=== PATIENT | male | born 1995 | race American Indian/Alaskan Native ===

== ENCOUNTER 2022-03-09 09:23 | Observation (INO) | payer OTHER ==
[~2022-03-09 09:23] MED LIST: ceFAZolin/Water 2 GM/20 ML 2 GM/20 ML SYRINGE IV NR
[2022-03-09] MEDS ORDERED: LACTATED RINGERS 1,000 ML ONE ×2 (09:45→13:13)
[2022-03-09] MEDS ORDERED: LIDOCAINE PF 100 MG/5 ML (CARDIAC SYRINGE) IV ONE (10:29)
[2022-03-09] MEDS ORDERED: fentaNYL 100 MCG/2 ML INJ ONE (10:29)
[2022-03-09] MEDS ORDERED: propofoL 200 MG/20 ML VIAL IV ONE (10:29)
--- NOTE | 2022-03-09 10:33 | Anesthesia Consultation ---
Anesthesia Consult and Med Hx Date of service: 03/09/22 - Airway Anesthetic Teeth Evaluation: Good Mental/Hyoid Distance: Adequate Mallampati Class: Class II Intubation Access Assessment: Good - Pulmonary Exam CTA: Yes - Cardiac Exam Cardiac Exam: No Murmur - Pre-Operative Health Status ASA Pre-Surgery Classification: ASA2 Proposed Anesthetic Plan: General - Pulmonary Hx Sleep Apnea: Yes (Does not use CPAP) - Central Nervous System Hx Psychiatric Problems: No - Other Systems Hx Cancer: No
--- NOTE | 2022-03-09 10:33 | Anesthesia Day of Surgery ---
Anesthesia Day of Surgery - Day of Surgery Patient Examined: Yes Patient H&P Reviewed: Yes Patient is NPO: Yes
[2022-03-09] MEDS ORDERED: SUCCINYLCHOLINE CHLORIDE 200 MG/10 ML INJ MDV ONE (10:35)
[2022-03-09] MEDS ORDERED: dexAMETHasone 20 MG/5 ML VIAL ONE (10:35)
[2022-03-09] MEDS ORDERED: ONDANSETRON 4 MG/2 ML INJ ONE (10:35)
[2022-03-09] MEDS ORDERED: HYDROmorphone 0.5 MG/0.5 ML INJ IV PRN (10:39)
[2022-03-09] MEDS ORDERED: LACTATED RINGERS 1,000 ML IV SCH (10:45)
[2022-03-09] MEDS ORDERED: dexAMETHasone 4 MG/ML VIAL ONE (10:58)
[2022-03-09] MEDS ORDERED: LIDOCAINE (1%) 10 MG/1 ML VIAL 20 ML MDV ONE (10:59)
[2022-03-09] MEDS ORDERED: BUPIVACAINE-EPINEPHRINE/PF 0.5%-1:200,000 (30 ML) VIAL INFILTRATI ONE (10:59)
[2022-03-09] MEDS ORDERED: CELECOXIB 200 MG CAP PO SCH (11:00)
[2022-03-09] MEDS ORDERED: MIDAZOLAM 2 MG/2 ML INJ IV NR (11:00)
[2022-03-09] MEDS ORDERED: ceFAZolin/NS 1 GM/50 ML 1 GM/50 ML BAG IV SCH ×2 (11:00→16:00)
[2022-03-09] MEDS ORDERED: GABAPENTIN 300 MG CAP PO SCH (11:00)
[2022-03-09] MEDS ORDERED: HYDROmorphone 1 MG/1 ML INJ ONE (11:51)
[2022-03-09] MEDS ORDERED: ONDANSETRON 4 MG/2 ML INJ IV PRN (12:00)
[2022-03-09] MEDS ORDERED: HYDROcodone/ACETAMINOPHEN 5-325 MG TAB PO PRN (12:00)
[2022-03-09] MEDS ORDERED: MORPHINE 4 MG/1 ML INJ IV PRN (12:00)
[2022-03-09] MEDS ORDERED: ACETAMINOPHEN 325 MG TAB PO PRN (12:00)
[2022-03-09] MEDS ORDERED: SODIUM CHLORIDE 0.9% IRR 1,500 ML BOTTLE IR ONE (12:29)
--- NOTE | 2022-03-09 15:14 | XRay Report ---
INTRAOPERATIVE FLUOROSCOPY: LEFT KNEE INDICATION / CLINICAL INFORMATION: UNILATERAL PRIMARY OSTEOARTHRITIS. TECHNIQUE: Intraoperative spot images were obtained during the procedure. FINDINGS / IMPRESSION: Plate and screw fixation hardware overlies the distal femur. Postsurgical changes from femoral osteot daxa. No immediate complication. Fluoroscopy Time: 1.7 minutes. Fluoroscopy Images: 1. Signer Name: Cuco Armenta MD Signed: 03/09/2022 3:10 PM Workstation Name: [id number]
--- NOTE | 2022-03-09 15:39 | Operative Report ---
DATE OF SURGERY: 03/09/2022 PREOPERATIVE DIAGNOSIS: Left knee arthritis. POSTOPERATIVE DIAGNOSIS: Left knee arthritis. PROCEDURE PERFORMED: Left knee distal femoral osteotomy. SURGEON: Jeremy Baptiste II, MD. METAL PLATER: None. ANESTHESIA: LMA and femoral nerve block. COMPLICATIONS: None. DRAINS: None. TOURNIQUET TIME: 144 minutes. INDICATIONS: The patient is a 26-year-old male who is having refractory pain in his left knee consistent with a subtotal lateral meniscectomy and degenerative changes in the lateral femoral condyle. Recommended the patient to undergo surgical management in the form of a distal femoral osteotomy. Risks, benefits and limitations of surgery were discussed with the patient including bleeding, infection, injury to nerves, blood vessel and need for operation. The patient understands these risks and consented to undergo surgery. TECHNIQUE: In preoperative holding area, site was marked with a surgical marker pen. Extremity was prepped and draped in a sterile fashion in a supine position with a bump under the ipsilateral side. Tourniquet was elevated to 300 mmHg. A lateral incision measuring about 10 cm in length was made. Dissection was carried down through the underlying soft tissue to the level of the IT band, which was split in line with its fibers. The vastus lateralis was then reflected anteriorly, taking care to ligate crossing vessels. The lateral femur was identified using a C-arm visualization. A plate was placed onto the lateral femur and a guide pin was placed obliquely beginning just proximal to the metaphysis on the lateral side extending medially towards the medial epicondyle. A guide pin was inserted and then used as a cutting guide for oscillating saw. The lateral, anterior and posterior cortex were cut and then a number of osteotomes were used to create an opening wedge on the lateral femur. An opening wedge of about 9 mm was performed. Lamina spreaders were inserted in order to hold the osteotomy in position. Next, a left small medium contoured and locked femoral osteotomy plate was applied to the knee. Distal screws were locked into place with multiple 6.5 cancellous screws. The alignment was then visualized using an alignment vinay centered at the femur as well as at the ankle, which did correct the lateral weightbearing of the knee alignment. The definitive fixation was placed proximally and then allograft bone chips and AlloSync Pure from [employer] was inserted to increase the likelihood of bony healing. The wound was irrigated prior to placement of bone graft. The IT band was closed with 0 Vicryl, subcutaneous tissue closed with 2-0 Vicryl and skin closed with justin. There was good hemostasis, therefore, no need to place a Hemovac drain. The tourniquet was deflated. The patient was awakened and taken to recovery room in a stable condition. POSTOPERATIVE PLAN: The patient will be nonweightbearing for 6 weeks. He will work with a CPM, working on range of motion exercises. We will see him back for a followup visit 2 weeks postop for suture removal. TID: [id number] RECEIPT: [id number] ASI/ARV
--- NOTE | 2022-03-09 16:35 | Post Anesthesia Evaluation ---
- Post Anesthesia Evaluation Patient Participated: Yes Airway Patent: Yes Stable Respiratory Function: Yes Nausea/Vomiting: No Temp > 96.8F: Yes Pain Manageable: Yes Adequeate Hydration: Yes Anesthesia Complications: No
[2022-03-09 18:19] VITALS: BP 125/78
[2022-03-10] MEDS ORDERED: ceFAZolin/NS 1 GM/50 ML 1 GM/50 ML BAG IV SCH
== END 2022-03-09 17:45 | disposition home or self-care (01) ==
LOC: OR 09:23 → 3A 10:58
PROVIDERS: ADMIT Orthopaedic Surgery Sports Medicine; ATTEND Orthopaedic Surgery Sports Medicine
DX: M17.12 Unilateral primary osteoarthritis, left knee (principal); G47.30 Sleep apnea, unspecified; Z79.899 Other long term (current) drug therapy; Z98.890 Other specified postprocedural states
CPT/HCPCS: 27450; 64447; 73560; C1713; G0378; G0379; J0330; J0690; J1100; J1170; J2001; J2250; J2405; J2704; J3010; J3490; J7120; 64450